=== PATIENT | female | born 1955 | race Caucasian/White ===

== ENCOUNTER 2016-12-31 14:35 | Emergency (ER) | payer OTHER ==
[~2016-12-31] VITALS: Ht 162.6 cm; Wt 67.5 kg
[2016-12-31 16:07] LABS: MCH 30.4 PG (29.0-34.0); MCHC 32.5 G/DL (30.0-36.0); MCV 93.4 FL (83-99); MEAN PLAT.VOLUME 9.1 uM^3 (9.5-12.4); PLATELET COUNT 295 K/uL (156-360); RBC DIS.WIDTH-CV 12.3 % (11.8-14.6); RBC DIS.WIDTH-SD 42.7 % (39-53); RED BLOOD COUNT 4.71 M/uL (3.80-5.20); WHITE BLOOD COUNT 7.1 K/uL (4.1-10.2)
[2016-12-31 16:22] LABS: CHLORIDE 107 mEq/L (99-109); SODIUM 141 mEq/L (136-147)
[2016-12-31 16:25] LABS: GLUCOSE 108 mg/dL (70-99)
[2016-12-31 16:26] LABS: ANION GAP 8 MEQ/L (2-14)
[2016-12-31 16:27] LABS: TOTAL BILIRUBIN 0.5 mg/dL (0.0-1.0)
[2016-12-31 16:28] LABS: ALKALINE PHOSPHATASE 79 IU/L (3-129); GFR ESTIMATE (CALCULATED) > 59 mL/min/
[2016-12-31 16:29] LABS: UREA NITROGEN (BUN) 10 mg/dL (9-23)
[2016-12-31 16:31] LABS: TROP-I INTERPRETATION NEGATIVE; TROPONIN-I < 0.01 ng/mL (0.0-0.30)
[2016-12-31 16:32] LABS: LIPASE 21 U/L (1.0-51.0)
[2016-12-31 16:48] LABS: ADD MIUA? YES; BILIRUBIN NEGATIVE; BLOOD NEGATIVE; COLOR STRAW ((YELLOW)); GLUCOSE (STRIP) NEGATIVE; KETONES NEGATIVE; LEUKOCYTES MODERATE; NITRITE NEGATIVE; PROTEIN (STRIP) NEGATIVE; SPECIFIC GRAVITY 1.004 (1.000-1.030); UROBILINOGEN 0.2 MG/DL (0.2-1.0)
[2016-12-31 16:58] LABS: BACTERIA RARE /HPF; EPITHELIAL CELLS RARE /HPF; MUCUS NONE SEEN /LPF; RED BLOOD CELLS 0-5 /HPF (0-5); UCUL ADDED? NO; WHITE BLOOD CELLS 0-5 /HPF (0-5)
[2016-12-31 20:38] VITALS: BP 114/59
== END 2016-12-31 20:40 ==
LOC: EME 14:35
PROVIDERS: Emergency Medicine
DX: R10.32 Left lower quadrant pain (principal); R10.31 Right lower quadrant pain; F03.90 Unspecified dementia, unspecified severity, without behavioral disturbance, psychotic disturbance, mood disturbance, and anxiety; F32.9 Major depressive disorder, single episode, unspecified; E11.9 Type 2 diabetes mellitus without complications; J44.9 Chronic obstructive pulmonary disease, unspecified; E78.5 Hyperlipidemia, unspecified; K21.9 Gastro-esophageal reflux disease without esophagitis; F17.200 Nicotine dependence, unspecified, uncomplicated
CPT/HCPCS: 74177; 80053; 81003; 83690; 84484; 85027; 93005; 99281; 99285